=== PATIENT | male | born 2000 | race African-American/Black ===

== ENCOUNTER 2020-12-11 18:24 | Emergency (ER) | payer MEDICAID ==
[~2020-12-11] VITALS: Ht 180.3 cm; Wt 90.7 kg
[~2020-12-11 18:24] MED LIST: ALBUPOW25; FLUT250M9; LEVE100012; METF-916; MONT10TA23
[2020-12-11] MEDS ORDERED: LORazepam 2MG/ML-1ML VIAL ONE ×2 (20:03)
[2020-12-11] MEDS ORDERED: LORazepam 2MG/ML-1ML VIAL IM ONE (20:15)
[2020-12-12 02:01] LABS: Basophils # (auto) 0.1 10 ^3/uL (0-0.2); Basophils % (auto) 0.7 % (0.0-2.0); Eosinophils # (auto) 0 10 ^3/uL (0-0.8); Hematocrit 48.1 % (41.0-53.0); Hemoglobin 16.3 g/dL (13.5-17.5); Lymphocytes # (auto) 2.7 10 ^3/uL (0.4-5.4); Lymphocytes % (auto) 19.3 % (10.0-50.0); Mean Corpuscular Hemoglobin 32.2 pg (28.0-32.0); Mean Corpuscular Hgb Conc. 33.8 g/dL (32.0-36.0); Mean Corpuscular Volume 95.2 fL (80.0-100.0); Monocytes # (auto) 0.8 10 ^3/uL (0-1.3); Monocytes % (auto) 5.4 % (0.0-12.0); Neutrophils # (auto) 10.4 10 ^3/uL (1.6-8.6); Neutrophils % (auto) 74.6 % (37.0-80.0); Nucleated Red Blood Cells % 0.1 %; Red Blood Cells 5.05 10^6/uL (4.5-5.90); White Blood Cell 13.9 10^3/uL (4.4-10.8)
[2020-12-12 02:19] LABS: Albumin 3.5 g/dL (3.4-5.0); BUN/Creatinine Ratio 16.7; Calcium 8.4 mg/dL (8.5-10.1); Potassium 4.5 mmol/L (3.5-5.1)
[2020-12-12 02:20] LABS: Bilirubin, Total 0.6 mg/dL (0.2-1.0)
[2020-12-12 03:45] LABS: Urine Bacteria NONE SEEN /hpf (None Seen); Urine Blood Negative /uL (Negative); Urine Mucus FEW (None Seen); Urine WBC 1 /hpf (0 - 3)
[2020-12-12 04:00] VITALS: BP 101/65
[2020-12-12 04:01] LABS: Amphetamine Screen, Urine NEGATIVE (NEGATIVE); Barbiturate Scree,Urine NEGATIVE (NEGATIVE); Benzodiazephine Screen, Urine NEGATIVE (NEGATIVE); Cannabinoid Screen, Urine POSITIVE (NEGATIVE); Cocaine Screen, Urine NEGATIVE (NEGATIVE); Opiate Scree,Urine NEGATIVE (NEGATIVE); Phencyclidine Screen, Urine NEGATIVE (NEGATIVE)
[2020-12-12] MEDS ORDERED: levETIRAcetam 500 MG/5ML INJ IV ONE (05:37)
== END 2020-12-12 07:01 | disposition home or self-care (01) ==
LOC: ER 18:24 → EDUNIT# 18:24 → EDBD 18:24 → ER 12-12 07:01
DX: G40.909 Epilepsy, unspecified, not intractable, without status epilepticus (principal); F12.10 Cannabis abuse, uncomplicated
CPT/HCPCS: 36415; 80053; 80307; 81001; 85025; 96365; 96372; 99285; J1953; J2060; J7060